=== PATIENT | male | born 1965 | race Caucasian/White ===

== ENCOUNTER 2023-09-02 17:06 | Emergency (ER) | payer OTHER ==
[2023-09-02] MEDS: Cyclobenzaprine 10 MG Tab PO ONE (17:50)
[2023-09-02] MEDS: Ketorolac 60 MG/2 ML SDV IM ONE (17:51)
== END 2023-09-02 21:35 | disposition home or self-care (01) ==
LOC: JD.ED 17:06
DX: S22.000A Wedge compression fracture of unspecified thoracic vertebra, initial encounter for closed fracture (principal); S22.31XA Fracture of one rib, right side, initial encounter for closed fracture; S00.91XA Abrasion of unspecified part of head, initial encounter; Z86.19 Personal history of other infectious and parasitic diseases; Z86.16 Personal history of COVID-19; W18.40XA Slipping, tripping and stumbling without falling, unspecified, initial encounter
CPT/HCPCS: 72072; 72128; 96372; 99284; A9270; J1885; 99283